=== PATIENT | female | born 2000 | race African-American/Black ===

== ENCOUNTER 2020-03-31 17:10 | Outpatient (CLI) | payer OTHER, SELFPAY | END 2020-03-31 17:11 | disposition home or self-care (01) | PROVIDERS: PCP Family Medicine; Visit Provider Nurse Practitioner Family | DX: F41.9 Anxiety disorder, unspecified (principal) | CPT/HCPCS: 36415; 84443 ==

== ENCOUNTER 2021-05-04 10:02 | Outpatient (CLI) | payer OTHER, SELFPAY ==
[2021-05-04 10:31] LABS: Basophils Percent Auto 0.5 % (0.2-1.2); Eosinophils Absolute Auto 0.1 K/mm3 (0-0.3); Eosinophils Percent Auto 1.9 % (0-4.4); Hematocrit 42.6 % (37.0-47.0); Hemoglobin 14.1 g/dL (12.0-15.0); Immature Granulocyte Absolute 0.01 K/mm3 (0.00-0.031); Immature Granulocyte Percent A 0.2 % (0-0.5); Lymphocytes Absolute Auto 1.35 K/mm3 (0.9-3.2); Lymphocytes Percent Auto 23.1 % (18.3-44.2); Mean Corpuscular HGB Conc 33.1 g/dl (32-36); Mean Corpuscular Volume 96.6 fl (80-100); Mean Platelet Volume 8.6 fl (7.4-10.4); Monocytes Absolute Auto 0.5 K/mm3 (0.1-0.6); Monocytes Percent Auto 8.2 % (2.6-8.5); Neutrophils Absolute Auto 3.9 K/mm3 (1.3-6.7); Neutrophils Percent Auto 66.1 % (45.5-73.1); Platelet Count Result 375 k/mm3 (150-375); Red Blood Count 4.41 M/mm3 (4.2-5.4); Red Cell Distribution Width 11.9 % (11.5-14.5); White Blood Count 5.8 K/mm3 (4.5-10.0)
[2021-05-04 10:43] LABS: Alanine Aminotransferase 13 U/L (4-35); Albumin Level 4.6 g/dL (3.5-5.1); Alkaline Phosphatase 49 U/L (38-126); Amylase 122 U/L (30-110); Anion Gap 10 mmol/L (8-16); Aspartate Amino Transferase 27 U/L (14-36); Bilirubin,Total 0.3 mg/dL (0.2-1.3); Blood Urea Nitrogen 7 mg/dL (7-17); Calcium 9.6 mg/dL (8.4-10.2); Carbon Dioxide 24 mmol/L (22-30); Chloride 104 mmol/L (98-107); Estimated Glomerular Filt Rate > 60; Glucose 93 mg/dL (65-110); Lipase 119 U/L (23-300); Potassium 4.3 mmol/L (3.4-5.0); Sodium 138 mmol/L (137-145)
== END 2021-05-04 10:03 | disposition home or self-care (01) ==
LOC: ANHLAB 10:04
PROVIDERS: PCP Family Medicine; Visit Provider Nurse Practitioner Family
DX: R10.9 Unspecified abdominal pain (principal); R11.2 Nausea with vomiting, unspecified
CPT/HCPCS: 36415; 80053; 82150; 83690; 85025

== ENCOUNTER 2021-07-03 15:49 | Emergency (ER) | payer OTHER, SELFPAY ==
[2021-07-03 15:52] VITALS: BP 118/72; PULSE 73; RESP 20; TEMP 36.3; O2SAT 100
[2021-07-03 16:04] LABS: Basophils Absolute Auto 0.1 K/mm3 (0.0-0.1); Basophils Percent Auto 0.7 % (0.2-1.2); Eosinophils Absolute Auto 0.1 K/mm3 (0-0.3); Eosinophils Percent Auto 0.8 % (0-4.4); Hemoglobin 15.4 g/dL (12.0-15.0); Immature Granulocyte Absolute 0.02 K/mm3 (0.00-0.031); Immature Granulocyte Percent A 0.2 % (0-0.5); Lymphocytes Absolute Auto 1.35 K/mm3 (0.9-3.2); Lymphocytes Percent Auto 15.4 % (18.3-44.2); Mean Corpuscular Hemoglobin 32.4 pg (26-34); Mean Corpuscular Volume 92.6 fl (80-100); Mean Platelet Volume 8.7 fl (7.4-10.4); Monocytes Absolute Auto 0.5 K/mm3 (0.1-0.6); Monocytes Percent Auto 5.4 % (2.6-8.5); Neutrophils Absolute Auto 6.8 K/mm3 (1.3-6.7); Neutrophils Percent Auto 77.5 % (45.5-73.1); Platelet Count Result 472 k/mm3 (150-375); Red Blood Count 4.75 M/mm3 (4.2-5.4); White Blood Count 8.7 K/mm3 (4.5-10.0)
[2021-07-03 16:26] LABS: Alanine Aminotransferase 22 U/L (4-35); Albumin Level 5.4 g/dL (3.5-5.1); Alkaline Phosphatase 56 U/L (38-126); Anion Gap 11 mmol/L (8-16); Aspartate Amino Transferase 33 U/L (14-36); Blood Urea Nitrogen 9 mg/dL (7-17); Calcium 10.2 mg/dL (8.4-10.2); Carbon Dioxide 21 mmol/L (22-30); Chloride 106 mmol/L (98-107); Estimated CRCL calculation 91 ml/min; Estimated Glomerular Filt Rate > 60; Glucose 111 mg/dL (65-110); Lipase 102 U/L (23-300); Potassium 4.3 mmol/L (3.4-5.0); Sodium 138 mmol/L (137-145)
[2021-07-03 17:11] VITALS: BP 123/80; PULSE 93; RESP 16; TEMP 36.7; O2SAT 100
--- NOTE | 2021-07-03 18:07 | PC.NURSE ---
pt to intake desk to inform this RN she is leaving. pt amb out of ed with steady gait and in no acute distress.
== END 2021-07-03 18:07 | disposition left against medical advice (07) ==
PROVIDERS: Specialist; Emergency Provider Emergency Medicine; PCP Family Medicine
DX: R11.2 Nausea with vomiting, unspecified (principal)
CPT/HCPCS: 36415; 80053; 83690; 85025; 99199

== ENCOUNTER 2021-07-05 08:28 | Emergency (ER) | payer OTHER, SELFPAY ==
--- NOTE | ~2021-07-05 | CT_ITS ---
EXAMINATION: CT abdomen pelvis w con DATE: 07/05/2021 10:54 INDICATION: Hematemesis. Abdominal pain. TECHNIQUE: Computed tomography (CT) of the abdomen and pelvis was performed with 100 mL Omnipaque 350 intravenous contrast. Automated exposure control and iterative reconstruction technique were employe d. The dose-length product was 238.91 mGy-cm. COMPARISON: None. FINDINGS: The visualized portions of the lung bases are clear without pneumonia or pleural effusion. The heart size is normal. No pericardial effusion. The liver, gallbladder, spleen, pancreas, adrenal glands, and kidneys are normal. There are no dilated loops of bowel. The visualized portion of the ap pendix is normal. There are no pathologically enlarged lymph nodes. There is no free intraperitoneal fluid. There is dextrocurvature of lumbar spine. IMPRESSION: 1. No etiology for the patient's symptoms. Reviewed, dictated and finalized at location A.
[2021-07-05 08:51] VITALS: BP 133/84; PULSE 90; RESP 14; TEMP 36.7; O2SAT 100
[2021-07-05 09:18] LABS: Basophils Percent Auto 0.5 % (0.2-1.2); Eosinophils Percent Auto 0.5 % (0-4.4); Hematocrit 42.6 % (37.0-47.0); Hemoglobin 15.2 g/dL (12.0-15.0); Immature Granulocyte Absolute 0.02 K/mm3 (0.00-0.031); Immature Granulocyte Percent A 0.3 % (0-0.5); Lymphocytes Absolute Auto 1.78 K/mm3 (0.9-3.2); Mean Corpuscular HGB Conc 35.7 g/dl (32-36); Mean Corpuscular Hemoglobin 32.1 pg (26-34); Mean Corpuscular Volume 89.9 fl (80-100); Mean Platelet Volume 8.7 fl (7.4-10.4); Monocytes Absolute Auto 0.9 K/mm3 (0.1-0.6); Monocytes Percent Auto 13.7 % (2.6-8.5); Neutrophils Absolute Auto 3.8 K/mm3 (1.3-6.7); Platelet Count Result 447 k/mm3 (150-375); Red Blood Count 4.74 M/mm3 (4.2-5.4); Red Cell Distribution Width 11.8 % (11.5-14.5); White Blood Count 6.6 K/mm3 (4.5-10.0)
[2021-07-05 09:24] LABS: Alanine Aminotransferase 26 U/L (4-35); Albumin Level 5.3 g/dL (3.5-5.1); Alkaline Phosphatase 53 U/L (38-126); Anion Gap 16 mmol/L (8-16); Aspartate Amino Transferase 42 U/L (14-36); Bilirubin,Total 2.1 mg/dL (0.2-1.3); Blood Urea Nitrogen 13 mg/dL (7-17); Calcium 9.8 mg/dL (8.4-10.2); Carbon Dioxide 22 mmol/L (22-30); Chloride 102 mmol/L (98-107); Estimated CRCL calculation 94 ml/min; Estimated Glomerular Filt Rate > 60; Glucose 100 mg/dL (65-110); Lipase 141 U/L (23-300); Potassium 3.4 mmol/L (3.4-5.0); Sodium 140 mmol/L (137-145)
[2021-07-05 09:25] LABS: Add Urine Microscopic? YES; Appearance Urine Cloudy (Clear); Bacteria Urine Trace /hpf; Bilirubin Urine Negative (Negative); Blood Urine Negative (Negative); Color Urine Yellow (Yellow); Glucose Urine UA Negative (Negative); Ketones Urine 2+ mg/dL (Negative); Leukocyte Esterase Ur Negative LEU/UL (Negative); Mucus Urine Heavy /lpf; Nitrate Urine Negative (Negative); Protein Urine 2+ mg/dL (Negative); Squamous Epithelial Cell Urine Few /hpf (Few)
[2021-07-05 09:37] LABS: Specific Grav Ur 1.033 (1.001-1.035)
--- NOTE | 2021-07-05 10:12 | ED.NAVMDI ---
HPI - Nausea/Vomiting/Diarrhea General Chief complaint: Nausea/Vomiting/Diarrhea Stated complaint: N/V Time Seen by Provider: 07/05/21 09:17 Source: patient Mode of arrival: ambulatory Limitations: no limitations History of Present Illness HPI Narrative: This is a 21 year old female that presents to the ER for nausea and vomiting noted over the last couple of days. Reports she has not been able to keep anything down. Reports yesterday she started to note some blood in her vomit after having several episodes of vomiting. No hematemesis noted today. Reports history of peptic ulcer disease for which she was recently placed on an antacid. Denies fever, chest pain, diarrhea, hematochezia, or dysuria. Related Data Allergies Allergy/AdvReac Type Severity Reaction Status Date / Time egg Allergy Mild COUGH AND Verified 07/01/21 08:49 SNEEZES. Protein Milk Allergy Intermediate COUGHS AND Uncoded 07/01/21 08:49 SNEEZES Wheat Allergy Mild COUGHS AND Uncoded 07/01/21 08:49 SNEEZES Review of Systems Review of Systems: CONSTITUTIONAL: Denies fever GASTROINTESTINAL: Reports abdominal pain, nausea, vomiting. Denies diarrhea. GENITOURINARY: Denies dysuria All systems reviewed & are unremarkable except as noted in HPI and below PMFSH Past Medical History Medical History BMI 20.0-20.9, adult BMI 22.0-22.9, adult Eustachian tube dysfunction Family History Family History Father No problems noted. Mother Qiana's disease Sibling No problems noted. Social History Social History Smoking status: Never smoker Second hand tobacco smoke exposure: No Alcohol intake: current Alcohol use details: occaisionally Substance use: never Substance use type: does not use Additional occupation/education comments: [employer] Gender identity (if verbalized by the patient): Female Exam Narrative: GENERAL: Well-appearing, well-nourished, and in no acute distress. HEAD: Normocephalic, atraumatic. EYES: EOMI. CHEST: Clear to auscultation. No respiratory distress. No wheezes rales or rhonchi HEART: Regular rate and rhythm. No murmur heard. Normal peripheral pulses. ABDOMEN: Soft, nondistended, normal active bowel sounds. Mild tenderness to palpation in the epigastrium, without guarding EXTREMITIES: Normal range of motion. No edema. SKIN: Warm, dry, no rash. NEURO: No focal deficits. Alert and oriented x3. PSYCH: Normal mood and affect Course Vital Signs Vital signs: Vital Signs Temperature 98.1 F 07/05/21 08:51 Pulse Rate 90 07/05/21 08:51 Respiratory Rate 14 07/05/21 08:51 Blood Pressure 133/84 07/05/21 08:51 Pulse Oximetry 100 07/05/21 08:51 Temperature 98.1 F 07/05/21 08:51 Pulse Rate 90 07/05/21 08:51 Respiratory Rate 14 07/05/21 08:51 Blood Pressure 133/84 07/05/21 08:51 Pulse Oximetry 100 07/05/21 08:51 MDM - Nausea/Vomiting/Diarrhea MDM Narrative Medical decision making narrative: Patient presents to the emergency department for nausea and vomiting noted over the last couple of days. Also reports some mild upper abdominal discomfort. She is afebrile and nontoxic-appearing. Her vitals are stable. She had reported episodes of seeing blood in the vomit yesterday after having several episodes of emesis. No hematemesis noted today. CBC is without leukocytosis. Does show mild hemoconcentration. Metabolic panel also consistent with likely dehydration. UA without evidence of infection. Bedside test is negative. CT scan of the abdomen pelvis is without acute findings. Patient hydrated in the ED with IV fluids and given dose of Protonix and Zofran with relief. She was able to tolerate p.o. challenge. Patient instructed to continue her PPI at home and will be given nausea medicati
[2021-07-05] MEDS: SODIUM CHLORIDE 0.9% IV 1,000 ML 999 ML IV CONT (10:15)
[2021-07-05] MEDS: ONDANSETRON INJ 4 MG/2 ML VIAL IV PUSH (10:30)
[2021-07-05] MEDS: PANTOPRAZOLE SODIUM IV 40 MG VIAL IV PUSH (10:30)
[2021-07-05 13:13] VITALS: BP 134/93; PULSE 88; RESP 16; O2SAT 98
== END 2021-07-05 13:14 | disposition home or self-care (01) ==
PROVIDERS: Emergency Provider Emergency Medicine; PCP Family Medicine
DX: E80.6 Other disorders of bilirubin metabolism (principal); R11.2 Nausea with vomiting, unspecified
CPT/HCPCS: 36415; 74177; 80053; 81001; 81025; 83690; 85025; 96361; 96374; 96375; 99284; C9113; J2405; J7030; Q9967

== ENCOUNTER 2021-07-06 01:05 | Observation (INO) | payer OTHER, SELFPAY ==
[2021-07-06] VITALS (8 sets, daily range): BP systolic 111–134; BP diastolic 71–92; PULSE 63–111; RESP 14–20; TEMP 36.4–36.7; O2SAT 98–100; BMI 22.4
--- NOTE | 2021-07-06 01:32 | ED.NAVMDI ---
HPI - Nausea/Vomiting/Diarrhea General Chief complaint: Nausea/Vomiting/Diarrhea Stated complaint: Vomiting Time Seen by Provider: 07/06/21 01:24 Source: patient Mode of arrival: ambulatory Limitations: no limitations History of Present Illness HPI Narrative: Patient is a 21-year-old female with a history of acid reflux who returns to the emergency department this morning for recurrent vomiting. Patient states that she has been unable to tolerate oral intake despite taking Zofran at home. Patient was seen this morning, diagnosed with mild dehydration, gastritis and discharged home with Zofran and Pepcid. Patient states that she try to take the Zofran but has vomited numerous times today. She has had normal oral intake today. She denies current abdominal pain. She is not . She denies urinary symptoms. She denies fever or chills. She reports feeling weak and shaky. She denies chest pain, cough or shortness of. Patient states she had a CT scan this morning that was normal. No history of this in the past. No recent food indiscretions. No recent sick contacts. Patient has been vaccinated for Covid, no history of Covid infection. Related Data Allergies Allergy/AdvReac Type Severity Reaction Status Date / Time egg Allergy Mild COUGH AND Verified 07/01/21 08:49 SNEEZES. Protein Milk Allergy Intermediate COUGHS AND Uncoded 07/01/21 08:49 SNEEZES Wheat Allergy Mild COUGHS AND Uncoded 07/01/21 08:49 SNEEZES Review of Systems Review of Systems: CONSTITUTIONAL: Denies fever, chills, or sweats. EYES: Denies visual changes, redness, or discharge. ENT: Denies rhinorrhea, congestion, sore throat, or otalgia. CARDIOVASCULAR: Denies chest pain, palpitations, or edema. RESPIRATORY: Denies cough or dyspnea. GASTROINTESTINAL: Denies abdominal pain, reports nausea and vomiting GENITOURINARY: Denies dysuria or hematuria. SKIN: Denies rash or itching. MUSCULOSKELETAL: Denies back pain, joint pain, or myalgia. NEUROLOGIC: Denies headache, numbness, or weakness. [facility] Past Medical History Medical History BMI 20.0-20.9, adult BMI 22.0-22.9, adult Eustachian tube dysfunction Family History Family History Father No problems noted. Mother Qiana's disease Sibling No problems noted. Social History Social History Smoking status: Never smoker Second hand tobacco smoke exposure: No Alcohol intake: current Alcohol use details: occaisionally Substance use: never Substance use type: does not use Additional occupation/education comments: [employer] Gender identity (if verbalized by the patient): Female Exam Narrative: GENERAL: Awake, alert, conversant HEAD: Normocephalic, atraumatic. EYES: PERRLA and EOMI. ENT: Nares clear, no rhinorrhea or epistaxis. Mucous membranes dry NECK: Supple. CHEST: No respiratory distress, breathing even and non labored HEART: Tachycardic rate, sinus rhythm ABDOMEN:Non distended, non tender EXTREMITIES: Normal range of motion. No edema. SKIN: Warm, dry, no rash. NEURO:No focal deficits. Alert and oriented x3 Course Vital Signs Vital signs: Vital Signs Temperature 36.7 C 07/06/21 01:09 Pulse Rate 111 H 07/06/21 01:09 Respiratory Rate 20 07/06/21 01:09 Blood Pressure 118/81 07/06/21 01:09 Pulse Oximetry 98 07/06/21 01:09 Temperature 36.7 C 07/06/21 01:09 Pulse Rate 88 07/06/21 02:54 Respiratory Rate 17 07/06/21 02:54 Blood Pressure 127/80 07/06/21 02:54 Pulse Oximetry 100 07/06/21 02:54 MDM - Nausea/Vomiting/Diarrhea MDM Narrative Medical decision making narrative: Patient returning for intractable nausea and vomiting. Clinically, she appears mildly dehydrated. Is tachycardic with dry mucous membranes. Patient without any abdominal pain. I
[2021-07-06] MEDS: ONDANSETRON INJ 4 MG/2 ML VIAL IV PUSH ×3 (02:07→13:25)
[2021-07-06] MEDS: DICYCLOMINE HCL INJ 20 MG/2 ML VIAL IM (02:07)
[2021-07-06] MEDS: SODIUM CHLORIDE 0.9% IV 2,000 ML 999 ML IV CONT (02:07)
[2021-07-06 02:19] LABS: Basophils Percent Auto 0.6 % (0.2-1.2); Eosinophils Percent Auto 0.6 % (0-4.4); Hematocrit 40.3 % (37.0-47.0); Hemoglobin 14.2 g/dL (12.0-15.0); Immature Granulocyte Absolute 0.01 K/mm3 (0.00-0.031); Immature Granulocyte Percent A 0.2 % (0-0.5); Lymphocytes Absolute Auto 1.42 K/mm3 (0.9-3.2); Mean Corpuscular HGB Conc 35.2 g/dl (32-36); Mean Corpuscular Hemoglobin 32.6 pg (26-34); Mean Corpuscular Volume 92.6 fl (80-100); Mean Platelet Volume 8.8 fl (7.4-10.4); Monocytes Absolute Auto 0.6 K/mm3 (0.1-0.6); Monocytes Percent Auto 9.4 % (2.6-8.5); Neutrophils Absolute Auto 4.1 K/mm3 (1.3-6.7); Neutrophils Percent Auto 66.2 % (45.5-73.1); Platelet Count Result 399 k/mm3 (150-375); Red Blood Count 4.35 M/mm3 (4.2-5.4); Red Cell Distribution Width 11.7 % (11.5-14.5); White Blood Count 6.2 K/mm3 (4.5-10.0)
[2021-07-06 02:30] LABS: Alanine Aminotransferase 24 U/L (4-35); Albumin Level 5.1 g/dL (3.5-5.1); Alkaline Phosphatase 46 U/L (38-126); Anion Gap 14 mmol/L (8-16); Aspartate Amino Transferase 35 U/L (14-36); Bilirubin,Total 2.3 mg/dL (0.2-1.3); Blood Urea Nitrogen 11 mg/dL (7-17); Calcium 9.4 mg/dL (8.4-10.2); Carbon Dioxide 23 mmol/L (22-30); Chloride 103 mmol/L (98-107); Estimated CRCL calculation 94 ml/min; Estimated Glomerular Filt Rate > 60; Glucose 99 mg/dL (65-110); Lipase 162 U/L (23-300); Potassium 3.3 mmol/L (3.4-5.0); Sodium 140 mmol/L (137-145)
[2021-07-06] MEDS: MORPHINE SULFATE (*CRX) 4 MG/ML INJ IV PUSH (03:33)
[2021-07-06] MEDS: METOCLOPRAMIDE HCL INJ 10 MG/2 ML VIAL IV PUSH (03:33)
[2021-07-06] MEDS: LORazepam INJ (*CRX) 2 MG/ML VIAL 0.5 MG IV PUSH (03:43)
[2021-07-06] MEDS: SODIUM CHLORIDE 0.9% IV 1,000 ML 125 ML IV CONT ×2 (05:23→15:24)
--- NOTE | 2021-07-06 05:26 | ADMGEN ---
This patient, Lina Mcpherson, was admitted to [facility] Room 300-01 [id number]. Patient/family oriented to hospital policies and general routines including ID bracelet, bed and alarms, visiting hours, pain management, procedures, bathroom and other care routines, personal items, smoking policy, room service/diet, and visiting hours. Information on how to activate the Rapid Response Team has been discussed. Patient/Family are encouraged to report perceived risks to care and to ask questions if they do not understand what they are told or what they should do.
[2021-07-06] MEDS: FAMOTIDINE 20 MG/2 ML VIAL IV PUSH ×2 (08:20→21:33)
--- NOTE | 2021-07-06 09:34 | PM.IMHP ---
H&P: HPI History of Present Illness Date/Time: 07/06/21 09:34 Chief Complaint: nausea/vomiting Narrative: Lina Mcpherson is a 21 year old lady with past medical history including Depression with anxiety and ADD has been admitted after resenting to the ED with complaints of intractable nausea and vomiting. Apparently she was seen in the ED early yesterday and diagnosed with mild dehydration and gastritis and discharged on Zofran. She returned because her symptoms did not improve. She tells me she had multiple episodes of vomiting. During interview and exam she denied any fever, chills, SOB, CP, abdominal pain or urinary symptoms. She denies any recent sick contacts and has been vaccinated for COVID 19. She does endorse alcohol use and marijuana use. She states that she had 2 drinks Monday night, though she did not feel hung over. She has not smoked any marijuana recently. She has not had any more episodes of nausea or vomiting and has been able to tolerate clears this morning. ED evaluation included and revealed: CT of A/P showed no acute abnormalities. CBC and CMP unremarkable. She was found to be clinically dehydrated. She has been admitted to observation status for further treatment and evaluation. Review of Systems Review of Systems: All systems reviewed & are unremarkable except as noted in HPI and below PMFSH Past Medical History Medical History BMI 20.0-20.9, adult BMI 22.0-22.9, adult Eustachian tube dysfunction Family History Family History Father No problems noted. Mother Qiana's disease Sibling No problems noted. Social History Social History Smoking status: Never smoker Second hand tobacco smoke exposure: No Alcohol intake: current Drinks per week: 2 Alcohol use details: occaisionally Substance use: current Substance use type: marijuana Additional occupation/education comments: [employer] Gender identity (if verbalized by the patient): Female Spiritual care concerns: No Meds Home Medications and Allergies Home Medications Medication Instructions Recorded Confirmed Type levonorgestrel-ethinyl estradiol 1 tablet PO DAILY #1 tablet 03/31/20 07/06/21 Rx 0.1 mg-20 mcg tablet pantoprazole 20 mg tablet,delayed 20 mg PO QAM #30 tablet 05/27/21 07/06/21 Rx release dextroamphetamine-amphetamine 10 10 mg PO DAILY #30 tablet 07/01/21 07/06/21 Rx mg tablet ondansetron 4 mg PO Q8H PRN #10 tablet 07/05/21 07/06/21 Rx Allergies Allergy/AdvReac Type Severity Reaction Status Date / Time egg Allergy Mild COUGH AND Verified 07/01/21 08:49 SNEEZES. Protein Milk Allergy Intermediate COUGHS AND Uncoded 07/01/21 08:49 SNEEZES Wheat Allergy Mild COUGHS AND Uncoded 07/01/21 08:49 SNEEZES Vital Signs Vital Signs - 24 hr 07/06/21 01:09 07/06/21 01:59 07/06/21 02:54 Temperature 36.7 C Pulse Rate 111 H 98 88 Respiratory Rate 20 15 17 Blood Pressure 118/81 134/83 127/80 Pulse Oximetry 98 100 100 07/06/21 04:51 07/06/21 07:45 Temperature 36.6 C Pulse Rate 81 63 Respiratory Rate 16 14 Blood Pressure 124/71 111/92 H Pulse Oximetry 98 100 Exam Const: General: no acute distress, alert and awake Orientation/consciousness: patient oriented x3 HENMT: Head: normocephalic and atraumatic Ears: hearing grossly normal bilaterally and external ears normal Face and sinus: face symmetric Mouth: Yes Normal oral and palatal mucosa present Eyes: Pupils: Equal, round and reactive pupils present EOM: EOMs intact bilaterally Neck: Neck: full ROM, trachea midline and no JVD Thyroid: thyroid normal Chest: Chest palpation & inspection: normal inspection of the chest Resp: Auscultation: clear to auscultation bilaterally Cardio: Rate: regular rate Rhythm
[2021-07-06] MEDS: POTASSIUM CHLORIDE 20 MEQ TABLET 40 MEQ PO (10:12)
--- NOTE | 2021-07-06 13:32 | PC.NURSE ---
On 07/06/21, the student, [China Capellan ], provided care and completed [facility] documentation on this patient. I have reviewed the student's documentation and agree with the findings.
[2021-07-07] MEDS: ONDANSETRON INJ 4 MG/2 ML VIAL IV PUSH (02:12)
[2021-07-07] MEDS: SODIUM CHLORIDE 0.9% IV 1,000 ML 125 ML IV CONT ×2 (04:21→08:43)
[2021-07-07 06:00] VITALS: BP 114/64; PULSE 77; RESP 18; TEMP 36.7; O2SAT 99
[2021-07-07 06:48] LABS: Basophils Percent Auto 0.7 % (0.2-1.2); Eosinophils Absolute Auto 0.1 K/mm3 (0-0.3); Hematocrit 39.4 % (37.0-47.0); Hemoglobin 13.6 g/dL (12.0-15.0); Immature Granulocyte Absolute 0.02 K/mm3 (0.00-0.031); Immature Granulocyte Percent A 0.4 % (0-0.5); Lymphocytes Percent Auto 23.4 % (18.3-44.2); Mean Corpuscular HGB Conc 34.5 g/dl (32-36); Mean Corpuscular Hemoglobin 32.5 pg (26-34); Mean Corpuscular Volume 94.3 fl (80-100); Mean Platelet Volume 9.3 fl (7.4-10.4); Monocytes Absolute Auto 0.5 K/mm3 (0.1-0.6); Monocytes Percent Auto 9.2 % (2.6-8.5); Neutrophils Absolute Auto 3.6 K/mm3 (1.3-6.7); Neutrophils Percent Auto 64.3 % (45.5-73.1); Platelet Count Result 320 k/mm3 (150-375); Red Blood Count 4.18 M/mm3 (4.2-5.4); Red Cell Distribution Width 11.3 % (11.5-14.5); White Blood Count 5.6 K/mm3 (4.5-10.0)
[2021-07-07 07:01] LABS: Anion Gap 14 mmol/L (8-16); Blood Urea Nitrogen 8 mg/dL (7-17); Calcium 8.3 mg/dL (8.4-10.2); Carbon Dioxide 15 mmol/L (22-30); Chloride 105 mmol/L (98-107); Estimated CRCL calculation 108 ml/min; Estimated Glomerular Filt Rate > 60; Glucose 58 mg/dL (65-110); Sodium 134 mmol/L (137-145)
[2021-07-07 07:50] VITALS: BP 136/83; PULSE 92; RESP 18; TEMP 36.3; O2SAT 100
[2021-07-07 08:07] LABS: Glucose Point of Care 110 mg/dl (65-105)
[2021-07-07 08:10] LABS: Glucose Point of Care 58 mg/dl (65-105)
[2021-07-07] MEDS: FAMOTIDINE 20 MG/2 ML VIAL IV PUSH (08:10)
--- NOTE | 2021-07-07 11:13 | PM.DS ---
DS: Admitting Diagnosis Discharge Date 07/07/2021 Admitting Diagnosis Acute dehydration DS: Discharge Diagnosis Discharge Diagnosis (1) Acute dehydration: Code(s): E86.0 - Dehydration Status: Acute Assessment and Plan: S/p IVF Encourage po intake Tolerating po no N/V (2) Nausea & vomiting: Code(s): R11.2 - Nausea with vomiting, unspecified Status: Acute Assessment and Plan: Supportive care with antiemtics Pepcid Has been on Protonix in the past (3) ADD (attention deficit disorder): Code(s): F98.8 - Other specified behavioral and emotional disorders with onset usually occurring in childhood and adolescence Status: Acute Assessment and Plan: On Adderall prn (4) Depression with anxiety: Code(s): F41.8 - Other specified anxiety disorders Status: Acute Assessment and Plan: Has taken Prozac in the past DS: Summary Hospital Course Hospital Course: Lina Mcpherson is a 21 year old lady with past medical history including Depression with anxiety and ADD has been admitted after resenting to the ED with complaints of intractable nausea and vomiting. Apparently she was seen in the ED early yesterday and diagnosed with mild dehydration and gastritis and discharged on Zofran. She returned because her symptoms did not improve. She tells me she had multiple episodes of vomiting. During interview and exam she denied any fever, chills, SOB, CP, abdominal pain or urinary symptoms. She denies any recent sick contacts and has been vaccinated for COVID 19. She does endorse alcohol use and marijuana use. She states that she had 2 drinks Monday night, though she did not feel hung over. She has not smoked any marijuana recently. She has not had any more episodes of nausea or vomiting and has been able to tolerate clears this morning. Overall the patient has improved clinically and is tolerating a regular diet. She was rehydrated with IVF and labs show no sign of infection. This morning she had an episode of hypoglycemia and was given juice and a snack and recovered quickly. She is hemodynamically stable and will discharge home today. She has been advised to follow up with her PCP. Time Spent with Patient Time attestation: Total time spent providing and/or coordinating discharge services: Exam Const: General: no acute distress, alert and awake Orientation/consciousness: patient oriented x3 HENMT: Head: normocephalic and atraumatic Ears: hearing grossly normal bilaterally and external ears normal Face and sinus: face symmetric Mouth: Yes Normal oral and palatal mucosa present Eyes: Pupils: Equal, round and reactive pupils present EOM: EOMs intact bilaterally Neck: Neck: full ROM, trachea midline and no JVD Thyroid: thyroid normal Chest: Chest palpation & inspection: normal inspection of the chest Resp: Auscultation: clear to auscultation bilaterally Cardio: Rate: regular rate Rhythm: regular rhythm Heart sounds: S1 normal heart sound present and S2 normal heart sound present GI: Inspection: normal to inspection Auscultation: normal bowel sounds : General: Yes no CVA tenderness Back/Spine/Pelvis: Back: no CVA tenderness Skin: General skin exam: normal color Rashes: no rashes Neuro: General: patient oriented x3 and CN's II-XI intact bilaterally Cranial nerves: Yes Equal, round and reactive pupils present Speech: normal speech Psych: Appearance: grossly normal Affect: normal affect Judgement: Good judgement present (Psych) DS: Data Data Completed and Pending Labs on day of discharge: Labs from last 24 hours 07/07/21 07/07/21 07/07/21 08:02 07:29 05:39 WBC RBC Hgb Hct MCV MCH MCHC RDW Plt Count MPV Immature Gran % (Auto) Neut % (Auto) Lymph % (Auto) Colbert % (Auto) Eos % (Auto) Baso % (Auto) Lymph # (Auto) Colbert # (Auto) Eos # (Auto) Baso # (Auto) Abs Immat Gran (au
== END 2021-07-07 11:35 | disposition home or self-care (01) ==
LOC: ANHED 02:38 → ANH3MEDSUR 07-07 10:26
PROVIDERS: Nurse Practitioner Adult Health; Admitting Provider Internal Medicine; Emergency Provider Emergency Medicine; PCP Family Medicine; Visit Provider Family Medicine
DX: E86.0 Dehydration (principal); R11.2 Nausea with vomiting, unspecified; F41.8 Other specified anxiety disorders; Z23 Encounter for immunization
CPT/HCPCS: 36415; 80048; 80053; 82948; 83690; 85025; 90471; 90653; 96361; 96365; 96366; 96372; 96374; 96375; 96376; 99285; A9270; G0008; G0378; J0131; J0500; J2060; J2270; J2405; J2765; J7030

== ENCOUNTER → 2021-08-05 01:46 | Outpatient (CLI) | payer OTHER, SELFPAY ==
[2021-08-05 22:24] LABS: SARS-CoV-2 RNA PCR Negative
== END ==
PROVIDERS: PCP Family Medicine; Visit Provider Nurse Practitioner Family
DX: R68.89 Other general symptoms and signs (principal); Z20.822 Contact with and (suspected) exposure to COVID-19
CPT/HCPCS: C9803; U0003; U0005

== ENCOUNTER 2021-08-25 01:19 | Day surgery (SDC) | payer OTHER, SELFPAY ==
[2021-08-11 14:39] VITALS: BMI 23.0
[2021-08-25 11:51] VITALS: BP 128/84; PULSE 78; RESP 20; TEMP 36.4; O2SAT 100
--- NOTE | 2021-08-25 11:56 | WPDANESEPPF ---
Anes - Initial Pre Proc Eval Procedure: Operation Date: 08/25/21 12:30 Proposed Procedures p Esophagogastroduodenoscopy - Sergio Balderas MD Date/Time: 08/25/21 11:56 Surgeon: Sergio Balderas MD Pre Op Diagnosis: nausea, vomiting Patient Data Age: 21 Gender: F Height: 1.6 m Weight: 61.3 kg Last Vital Signs Temp 36.4 C 08/25/21 11:51 Pulse 78 08/25/21 11:51 Resp 20 08/25/21 11:51 BP 128/84 08/25/21 11:51 Pulse Ox 100 08/25/21 11:51 Allergies Allergy/AdvReac Type Severity Reaction Status Date / Time egg Allergy Mild COUGH AND Verified 08/25/21 11:50 SNEEZES. Protein Milk Allergy Intermediate COUGHS AND Uncoded 08/11/21 14:38 SNEEZES Wheat Allergy Mild COUGHS AND Uncoded 08/11/21 14:38 SNEEZES Home Medications Medication Instructions Recorded Confirmed Type levonorgestrel-ethinyl estradiol 1 tablet PO DAILY #1 tablet 03/31/20 08/11/21 Rx 0.1 mg-20 mcg tablet dextroamphetamine-amphetamine 10 mg PO DAILY PRN 08/11/21 08/11/21 History [Adderall] pantoprazole 20 mg PO DAILY PRN 08/11/21 08/11/21 History Patient hx anesthesia problems: none Family hx anesthesia problems: none Results Review: All pre-operative results and documents have been reviewed as part of the pre-operative evaluation. [facility] Past Medical History Medical History BMI 20.0-20.9, adult BMI 22.0-22.9, adult Depression with anxiety Eustachian tube dysfunction Family History Family History Father No problems noted. Mother Qiana's disease Sibling No problems noted. Social History Social History Smoking status: Never smoker Second hand tobacco smoke exposure: No Alcohol intake: current Drinks per week: 3 Alcohol use details: occaisionally Substance use: former Substance use type: marijuana Living arrangements: with roommate(s) Additional occupation/education comments: [employer] Gender identity (if verbalized by the patient): Female Sexual Orientation (if Verbalized by the Patient): Straight or Heterosexual Spiritual care concerns: No Agree to blood products: Yes Anes - Eval Final PreProcedure Day of Procedure 08/25/21 11:56 Patient weight: normal Heart: regular rate and rhythm Lungs: clear to auscultation Airway: Mallampati scale class II Neurological: alert and oriented Last oral intake: >/= 8 hours ASA classification: II Emergent: no Anesthetic plan: proceed Anesthesia type and monitoring: general GIVS and standard monitoring Results Review: All pre-operative results and documents have been reviewed as part of the pre-operative evaluation. Informed Consent: The patient's anesthetic plan and its attendant risks and benefits were discussed with the patient/family/POA. Questions were solicited and answers provided to the satisfaction of the patient/family/POA.
[2021-08-25] MEDS: LACTATED RINGERS 1,000 ML 150 ML IV CONT (12:01)
--- NOTE | 2021-08-25 12:35 | WPDHPUPDATE1 ---
History and Physical Update Update Date/Time: 08/25/21 12:35 History and Physical has been reviewed, including an updated exam of the patient. There are NO changes in the patient's condition. Risks, benefits, and alternatives have been discussed and questions answered. Patient agrees to proceed with procedure.
[2021-08-25 12:54] VITALS: BP 117/79; PULSE 91; RESP 16; O2SAT 99
[2021-08-25 13:04] VITALS: BP 121/85; PULSE 73; RESP 20; O2SAT 99
[2021-08-25 13:14] VITALS: BP 116/85; PULSE 71; RESP 18; O2SAT 100
== END 2021-08-25 13:23 | disposition home or self-care (01) ==
PROVIDERS: PCP Family Medicine; Visit Provider Internal Medicine Gastroenterology
PROC: 0DJ08ZZ Inspection of Upper Intestinal Tract, Via Natural or Artificial Opening Endoscopic (ICD-10-PCS; CPT 43235; principal; 2021-08-25 12:30)
DX: R11.2 Nausea with vomiting, unspecified (principal); K29.50 Unspecified chronic gastritis without bleeding; F41.8 Other specified anxiety disorders; F12.90 Cannabis use, unspecified, uncomplicated
CPT/HCPCS: 43239; 88305; J2704; J7120